=== PATIENT | male | born 1965 | race Caucasian/White ===

== ENCOUNTER → 2025-03-07 | Outpatient (CLI) | payer BC | END | disposition home or self-care (01) | LOC: SHCH 10:44 | PROVIDERS: ATTEND Student in an Organized Health Care Education/Training Program | DX: I08.8 Other rheumatic multiple valve diseases (principal); I77.819 Aortic ectasia, unspecified site; R01.1 Cardiac murmur, unspecified | CPT/HCPCS: 93306 ==